=== PATIENT | female | born 1980 | race Two or more races ===

== ENCOUNTER 2020-07-25 17:47 | Emergency (ER) | payer SELFPAY ==
[~2020-07-25] VITALS: Ht 175.3 cm; Wt 60.0 kg
[2020-07-25] MEDS ORDERED: PREDNISONE 20MG TABLET PO STA (18:30)
[2020-07-25] MEDS ORDERED: IPRATROPIUM BROMIDE (0.02%) 0.5MG/2.5ML NEB HHN STA (18:30)
[2020-07-25] MEDS ORDERED: ACETAMINOPHEN 325MG TABLET PO STA (18:30)
[2020-07-25] MEDS ORDERED: ALBUTEROL (0.083%) 2.5MG/3ML NEB HHN STA (18:30)
[2020-07-25 18:45] LABS: HEMATOCRIT. 33.8 % (36.0-48.0); HEMOGLOBIN. 10.9 g/dL (12.0-16.0); MEAN CORPUSCULAR HEMOGLOBIN 23.6 pg (28.0-32.0); MEAN CORPUSCULAR VOLUME 73.1 fL (81.0-99.0); MEAN PLATELET VOLUME 8.5 fl (7.4-10.4); PLATELET 272 x1000/uL (130-400); RED BLOOD CELL COUNT 4.63 mill/uL (4.2-5.4); RED CELL DISTRIBUTION WIDTH 18.9 % (11.6-14.6)
[2020-07-25 18:52] LABS: CHLORIDE 110 mEq/L (98-107)
[2020-07-25] MEDS ORDERED: AZITHROMYCIN 500 MG TABLET PO ONE (19:00)
[2020-07-25 19:23] LABS: PLATELET ESTIMATE NORMAL
[2020-07-25] MEDS ORDERED: ALBU6.7H11 INH (19:26)
[2020-07-25] MEDS ORDERED: AZIT250T12 PO (19:27)
[2020-07-25 20:00] VITALS: BP 117/70
== END 2020-07-25 20:15 | disposition home or self-care (01) ==
LOC: ER 17:47
DX: R07.89 Other chest pain (principal); R06.02 Shortness of breath; J45.909 Unspecified asthma, uncomplicated
CPT/HCPCS: 36415; 71045; 80053; 81025; 83880; 84484; 85025; 93005; 94640; 99285; J7512; Z7610

== ENCOUNTER 2021-09-30 14:13 | Emergency (ER) | payer MEDICAID ==
[~2021-09-30] VITALS: Ht 157.5 cm; Wt 72.0 kg
[~2021-09-30 14:13] MED LIST: ALBU6.7H15 INH; AZIT250T12 PO
[2021-09-30 14:32] VITALS: BP 101/64
[2021-09-30 18:35] LABS: CLARITY URINE CLEAR (CLEAR); COLOR URINE YELLOW (YELLOW); KETONES URINE NEGATIVE (NEGATIVE); LEUKOCYTE ESTERASE URINE NEGATIVE (NEGATIVE); NITRITE URINE NEGATIVE (NEGATIVE); OCCULT BLOOD URINE TRACE (NEGATIVE); PH URINE 5.5 (4.5-8.0); PROTEIN URINE NEGATIVE (NEGATIVE); SPECIFIC GRAVITY URINE 1.013 (1.005-1.030); UROBILINOGEN URINE 0.2 E.U./dL (0.2-1.0)
[2021-09-30 18:55] LABS: BASOPHILS % 0.4 % (0.0-2.0); EOSINOPHILS % 12.3 % (0.0-5.0); HEMATOCRIT. 30.2 % (36.0-48.0); HEMOGLOBIN. 9.2 g/dL (12.0-16.0); LYMPHOCYTES % 23.5 % (20.0-50.0); MEAN CORPUSCULAR HEMOGLOBIN 19.1 pg (28.0-32.0); MEAN CORPUSCULAR VOLUME 62.6 fL (81.0-99.0); MEAN PLATELET VOLUME 8.6 fl (7.4-10.4); MONOCYTES % 5.6 % (2.0-8.0); NEUTROPHILS % 58.2 % (40.0-76.0); PLATELET 319 x1000/uL (130-400); RED BLOOD CELL COUNT 4.82 mill/uL (4.2-5.4); RED CELL DISTRIBUTION WIDTH 20.9 % (11.6-14.6)
[2021-09-30 18:57] LABS: CHLORIDE 104 mEq/L (98-107)
[2021-09-30 19:04] LABS: PROTHROMBIN TIME 11.2 sec (9.6-11.0)
[2021-09-30 21:17] LABS: PLATELET ESTIMATE NORMAL
[2021-09-30] MEDS ORDERED: MAGNESIUM/ALUMINUM HYDROXIDE/SIMETHICONE 30ML UDC PO ONE (21:30)
[2021-09-30] MEDS ORDERED: FAMOTIDINE 20MG TABLET PO ONE (21:30)
[2021-09-30] MEDS ORDERED: VISCOUS LIDOCAINE 2% 15 ML UDC MM STA (21:32)
[2021-09-30] MEDS ORDERED: ONDANSETRON 4MG ODT PO ONE (21:45)
[2021-09-30] MEDS ORDERED: MORPHINE SULFATE 10 MG/ML CPJ IM ONE (21:45)
[2021-09-30] MEDS ORDERED: ACETAMINOPHEN 325MG TABLET PO ONE (21:45)
[2021-09-30] MEDS ORDERED: FAMO40TA70 MT (22:18)
== END 2021-09-30 23:53 | disposition home or self-care (01) ==
LOC: ER 14:13
DX: R10.13 Epigastric pain (principal); R11.0 Nausea; J45.909 Unspecified asthma, uncomplicated; Z90.49 Acquired absence of other specified parts of digestive tract; Z88.0 Allergy status to penicillin
CPT/HCPCS: 36415; 71045; 76705; 80053; 81003; 83690; 83880; 84484; 85025; 85610; 93005; 96372; 99285; J2270; Q0162